=== PATIENT | female | born 1950 | race Caucasian/White ===

== ENCOUNTER → 2017-11-13 | Day surgery (SDC) | payer MEDICARE, OTHER ==
[~2017-11-13] VITALS: Ht 162.6 cm; Wt 61.2 kg
[2017-11-13] VITALS (7 sets, daily range): BP systolic 85–137; BP diastolic 65–97
[~2017-11-13] MED LIST: ACYC800T99 PO; ASPI81TA94 PO; ATOR40TA24 PO; BACDS PO; BLAC160C3 PO; CALC-733 PO; CHOL2000 PO; CORED RIGHT EAR; CYCL-343 PO; DOC100 PO; ESOM40CA42 PO; ESTR-26 PO; IBU200 PO; IBU800 PO; IBUP800T37 PO; LEV25 PO; LEVO50TA86 PO; LIDOCAINE/SOD BICARB 8.4% SYR ID ONE; LOR5/325 PO; METO100T20 PO; METO25TA91 PO; METO50TA19 PO; NORMOSOL R SOLN(*) 1000 ML BAG 1,000 ML IV PRN; OMEG-36 PO; OXYC1TAB54 PO; PROPOFOL(*)1000 MG/100 ML VIAL 100 ML ONE; RIFA1CAP5 PO; RIVA20TA PO; SIM10 PO; [UNRECOGNIZED DRUG - CODE] PO; hormone cream
== END ==
LOC: OR 00:28
PROVIDERS: ATTEND Family Medicine
DX: K59.00 Constipation, unspecified (principal); R93.5 Abnormal findings on diagnostic imaging of other abdominal regions, including retroperitoneum; I48.2 Chronic atrial fibrillation; I10 Essential (primary) hypertension; E83.52 Hypercalcemia; E78.00 Pure hypercholesterolemia, unspecified; E03.9 Hypothyroidism, unspecified; Z79.01 Long term (current) use of anticoagulants
CPT/HCPCS: 45378; J2704

== ENCOUNTER → 2018-05-26 | Outpatient (REF) | payer MEDICARE, OTHER ==
[~2018-05-26] MED LIST changes: -LIDOCAINE/SOD BICARB 8.4% SYR ID ONE; -NORMOSOL R SOLN(*) 1000 ML BAG 1,000 ML IV PRN; -PROPOFOL(*)1000 MG/100 ML VIAL 100 ML ONE
== END ==
LOC: ZZSENDIN 16:55
PROVIDERS: ATTEND Family Medicine
DX: M79.661 Pain in right lower leg (principal)
CPT/HCPCS: 85379

== ENCOUNTER → 2018-12-15 | Outpatient (REF) | payer MEDICARE, OTHER | LOC: ZZSENDIN 16:54 | PROVIDERS: ATTEND Urology | DX: N39.0 Urinary tract infection, site not specified (principal); R35.0 Frequency of micturition; B96.89 Other specified bacterial agents as the cause of diseases classified elsewhere | CPT/HCPCS: 81001; 87077; 87088; 87186 ==

== ENCOUNTER → 2019-03-30 | Outpatient (REF) | payer MEDICARE, OTHER | LOC: ZZSENDIN 16:10 | PROVIDERS: ATTEND Urology | DX: N39.0 Urinary tract infection, site not specified (principal); R31.1 Benign essential microscopic hematuria; B96.89 Other specified bacterial agents as the cause of diseases classified elsewhere | CPT/HCPCS: 87088 ==